=== PATIENT | female | born 1995 | race Caucasian/White ===

== ENCOUNTER 2016-12-03 13:12 | Emergency (ER) | payer OTHER ==
[~2016-12-03] VITALS: Ht 157.5 cm; Wt 59.0 kg
[~2016-12-03 13:12] MED LIST: Z.0.NO CURRENT MEDS
[2016-12-03] MEDS ORDERED: SODIUM CHLORIDE 0.9% FLUSH 10 ML FLUSH IVF PRN (13:45)
[2016-12-03 13:46] VITALS: BP 112/70; PULSE 97; RESP 16; TEMP 98.7; O2SAT 100
[2016-12-03 13:50] VITALS: PULSE 96
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
[2016-12-03 14:39] LABS: AUTOMATED NEUTROPHIL # 12.3 TH/MM3 (1.8-7.7); BASOPHIL # 0.1 TH/MM3 (0-0.2); BASOPHIL % 0.4 % (0.0-2.0); EOSINOPHIL # 0.1 TH/MM3 (0-0.4); EOSINOPHIL % 0.4 % (0.0-4.0); HEMATOCRIT 39.7 % (35.0-46.0); HEMO FLAGS DIFF FINAL; LYMPH % 8.5 % (9.0-44.0); LYMPHOCYTE # 1.2 TH/MM3 (1.0-4.8); MEAN CELL VOLUME 84.8 FL (80.0-100.0); MEAN CORPUSCULAR HGB CONC 31.8 % (32.0-36.0); MONO % 4.6 % (0.0-8.0); NEUT % 86.1 % (16.0-70.0); PLATELET COUNT 265 TH/MM3 (150-450); RED BLOOD COUNT 4.68 MIL/MM3 (4.00-5.30); RED CELL DISTRIBUTION WIDTH 13.6 % (11.6-17.2); WHITE BLOOD COUNT 14.3 TH/MM3 (4.0-11.0)
[2016-12-03 15:03] LABS: BICARBONATE 23.1 MEQ/L (21.0-32.0)
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
[2016-12-03 16:55] VITALS: BP 122/75; PULSE 99; RESP 18; O2SAT 100
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
[2016-12-03] MEDS ORDERED: ROBA500T PO (17:19)
[2016-12-03] MEDS ORDERED: KETOROLAC TROMETHAMINE 30 MG/ML (IVP) VIAL IV PUSH ONE (17:30)
[2016-12-03] MEDS ORDERED: IOHEXOL 350 MG/ML 10 ML VIAL (for RAD DIAG) IV ONE (18:10)
== END 2016-12-03 18:00 | disposition home or self-care (01) ==
LOC: NEPD 13:12
DX: S30.1XXA Contusion of abdominal wall, initial encounter (principal); S93.401A Sprain of unspecified ligament of right ankle, initial encounter; S29.012A Strain of muscle and tendon of back wall of thorax, initial encounter; M54.2 Cervicalgia; V89.2XXA Person injured in unspecified motor-vehicle accident, traffic, initial encounter
CPT/HCPCS: 70450; 71260; 72125; 73600; 73650; 74177; 80048; 85025; 96374; 99285; J1885; Q9967